=== PATIENT | male | born 1955 | race Caucasian/White ===

== ENCOUNTER 2016-11-30 09:27 | Day surgery (SDC) | payer OTHER ==
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
[2016-11-30] VITALS (9 sets, daily range): BP systolic 124–147; BP diastolic 79–89; PULSE 88–106; RESP 15–25; O2SAT 93–100
[~2016-11-30] VITALS: Ht 182.9 cm; Wt 90.2 kg
--- NOTE | 2016-11-30 08:50 | PCM.HPANE ---
Patient Data Surgeon Admitting Provider: Attending Provider:Royal Acosta MD Primary Care Physician:Jb Truong DO Other Provider:Dana Philip Anesthesia Reason for Visit Lumbar Radiculopathy Ht/WT & BMI Height (Feet): 6 Height (Inches): 0 Weight (Kilograms): 91.35 Body Mass Index 27.00 Allergies Coded Allergies: No Known Drug Allergies (Verified Allergy, Unknown, 07/15/16) Past Anesthesia History Anesthesia History: Denies:: Abnormal Airway, Anesthesia Reactions, Fam Anesthesia Reaction Diabetes History Hx Diabetes?: No MRSA MRSA: No Medications Hypertension Medication: No Home Meds Incl Beta Luanne: No Reported Medications Omeprazole 40 Mg Capsule.dr40 Mg PO DAILY Ref 0 07/15/16 Cyclobenzaprine 10 Mg [id number] Mg PO TID PRN Spasm 07/15/16 Amitriptyline 50 Mg Tab25 Mg PO HS Ref 0 07/15/16 Alprazolam 0.5 Mg Tablet0.5 Mg PO TID PRN For Anxiety Ref 0 07/15/16 History History of ENT Problems?: Yes HEENT History: Positive for:: Sinus Problem (nasal passages plug up when lying on stomach) Denies:: Abnormal Airway Dysphagia Hearing Problem TMJ Hx of Heart Problems?: No Cardiovascular History: Denies:: AICD Abdominal Aortic Aneurism Atrial Fibrillation Chest Pain Congestive Heart Failure Coronary Artery Disease Edema Heart Murmur Hypertension Irregular Heartbeat Pacemaker Rheumatic Fever Thrombophlebitis Hx of Respiratory Problem?: No Respiratory History: Denies:: Asthma COPD Emphysema Oxygen Administration Pneumonia Tuberculosis Use of C-PAP Machine Use of Inhalers / NEBS Hx Neurologic Problems?: Yes Neurological History: Positive for:: Headaches (failed botox treatment, amitriptyline daily controls h/a) Denies:: Alzheimer's Disease CVA Dizziness Multiple Sclerosis Parkinson's Disease Seizures Hx of GI Problems?: Yes Gastrointestinal History: Positive for:: Gastroesphageal Reflux Heartburn Denies:: Cirrhosis Gall Bladder Disease Gastrointestinal Bleeding Hepatitis Hiatal Hernia Liver Disease Rectal Bleeding Hx of Problems?: No Genitourinary History: Denies:: Kidney Stones Urinary Tract Infection Male Hx: Denies:: Prostate Problems Scrotal Mass Testicular Surgery Skin History: Denies:: History Skin Disorders? 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 Denies:: Blood Transfusions Hx Diabetes: No Hx Alcohol Use: No (not for 30 years )Hx Substance Use: No Smoking Status: Former Smoker Stop/Bang S-Snoring: Do You Snore Loudly: No T-Tired: feel tired, fatigued: No O-Obsered: Observed not breath: No P-Blood Pressure: treated: No B- Body Mass Index > 35 kg/m2: No A- Age over 50: Yes N- Neck Large Circumference: No G- Gender Male: Yes CARLOS Total Score: 2 Risk Assessment Category Category 1A: Patient has history of documented sleep apnea, and HAS NOT received any narcotic, sedative or anesthesia administration during this stay. Category 1B: Patient has history of documented sleep apnea, and HAS received any narcotic , sedative or anesthesia administration during this stay Category 2: Patient has SUSPECTED Obstructive Sleep Apnea, and HAS received any narcotic , sedative or anesthesia administration during this stay. Category 3: Patient has SUSPECTED Obstructive Sleep Apnea and HAS NOT received narcotic, sedative or anesthesia administration during this stay. Category 4: Outpatient in Procedural Areas with known sleep apnea or who screen positive for High Risk via the STOP/BANG questionnaire. Exam Exam General Appearance: Alert, Oriented X3, Cooperative, No Acute Distress HEENT/AIRWAY: MP 1 Lungs: Normal Air Movement Heart: Regular Rate/Rhythm Plan Impression Patient chart reviewed, patient interviewed and anesthestic plan with risks, benefits, and alternatives discussed, and informed consent obtained. ASA Physical Status: ASA2 Mod Systemic Disease Anesthetic Plan: GA Bene/Risks/Altern/Consents: Yes HP Complete Prior to Induction: Yes Maru Sun DO Nov 30, 2016 08:50
[~2016-11-30 09:27] MED LIST: ALPR0.5T8 PO; AMT50T PO; Bacitracin 50,000 unit Inj IRRIGATION SCH; Bupivacaine Liposome 1.3% 20 mL Inj INFILTRATE ONE; CYCL10TA9 PO; CeFAZolin Inj 2 GM in IV Premix 1 EACH IV ONE; OMEP40CA36 PO; Thrombin Powder 5,000 Unit TOPICAL SCH
[2016-11-30] MEDS ORDERED: Propofol 10,000 mCg/mL 20 mL Inj ONE (09:28)
[2016-11-30] MEDS ORDERED: Ondansetron 2 mg/mL 2 mL Inj ONE (09:28)
[2016-11-30] MEDS ORDERED: Dexamethasone 4 mg/mL Inj ONE (09:28)
[2016-11-30] MEDS ORDERED: Rocuronium 10 mg/mL 5 mL Inj ONE (09:28)
[2016-11-30] MEDS ORDERED: fentaNYL-PF 50 mCg/mL 2 mL Inj ONE (09:28)
[2016-11-30] MEDS ORDERED: Lidocaine PF 1% 30 mL Inj ONE (09:28)
[2016-11-30] MEDS: Lactated Ringer's 1,000 ML IV SCH ×2 (09:55→12:08)
[2016-11-30] MEDS ORDERED: Bupivacaine Liposome 1.3% 20 mL Inj ONE (11:53)
[2016-11-30] MEDS ORDERED: Bacitracin 50,000 unit Inj XX ONE (12:50)
[2016-11-30] MEDS ORDERED: Thrombin Powder 5,000 Unit TOPICAL ONE (12:51)
[2016-11-30] MEDS ORDERED: Bupivacaine-MPF 0.5% 30 mL Inj INJ ONE (12:51)
[2016-11-30] MEDS ORDERED: Gelatin Sponge 12-7 MM TOPICAL ONE (12:51)
[2016-11-30] MEDS ORDERED: Bupivacaine Liposome 1.3% 20 mL Inj INFILTRATE ONE (12:51)
[2016-11-30] MEDS ORDERED: Lactated Ringer's 500 ML IV PRN (13:03)
[2016-11-30] MEDS ORDERED: Lactated Ringer's 1,000 ML IV SCH ×2 (13:03→14:45)
[2016-11-30] MEDS ORDERED: EPHEDrine Sulfate 50 mg/mL Inj IVPUSH PRN (13:05)
[2016-11-30] MEDS ORDERED: Ondansetron 2 mg/mL 2 mL Inj IVPUSH PRN ×2 (13:05→14:45)
[2016-11-30] MEDS ORDERED: Phenylephrine 10,000 mCg/mL Inj IVPUSH PRN (13:05)
[2016-11-30] MEDS ORDERED: MetoCLOpramide 5 mg/mL 2 mL Inj IVPUSH PRN ×2 (13:05→14:45)
--- NOTE | 2016-11-30 13:08 | DRSVH ---
PROCEDURE: X-RAY LUMBAR SPINE, 2 OR 3 VIEW INDICATIONS: LEFT L4 HEMILAMINECTOMY TECHNIQUE: One views of the lumbar spine were acquired. COMPARISON: None. FINDINGS: Bones: Intraoperative L5-S1 lateral image shows a posterior metallic marker overlying the L4-5 disc l evel. IMPRESSION: Intraoperative disc marker at L4-5. Report called to surgery at 1306 hrs. on 11/30/2016. I nterspace was appropriate marked on the image Dictated by: Alec Young M.D. on 11/30/2016 at 13:05 Approved by: Alec Young M.D. on 11/30/2016 at 13:07
--- NOTE | 2016-11-30 14:44 | PCM.DISURG ---
Surgical Discharge Instruction Date of Service Nov 30, 2016 Dates of Hospitalization Date of Hospital Admission Outpatient with a bed status discharging from day surgery Providers Admitting Physician: Primary Care Physician: Jb Truong DO Attending Physician: Royal Acosta MD Discharge Diagnosis Discharge Diagnosis Status post left L4 hemilaminectomy, left L4 foraminotomy with minimally invasive surgical approach Post Operative diagnosis Status post left L4 hemilaminectomy, left L4 foraminotomy with minimally invasive surgical approach Additional Instructions Discharge Instructions Minimally Invasive Lumbar Spinal Decompression Surgery Instructions What is my recovery like? Patient is usually go home the same day of surgery. A lumbar brace is worn for comfort only. What are my restrictions? You should not lift anything heavier than five pounds. You should not perform any excessive bending from the waist or twisting movements. Can I Shower? You may shower when you go home. You must remove the outside dressing on the 7th day after surgery, or change as needed if soiled or saturated (replacing new sterile gauze & water proof dressing) otherwise leave alone. The remaining small pieces of tape (steri-strips) directly on top of the incision may get wet. The steri-strips will fall off on their own. Can I drive? No, you should not drive until specifically given permission from your Doctor in a follow up appointment. Most Patient's can drive in 2-3 weeks if they are not taking narcotic pain medications or muscle relaxers. You may ride in a car, but should avoid trips longer than two hours in duration. When can I return work / sports? Your Doctor will discuss your return to work with you on your first postoperative follow-up appointment. Most patients may return to work within 2 weeks for sedentary jobs. More physically demanding jobs may require 3-6 months of healing before such work can be considered. When should I call the doctor? You should call your Doctor or go to the Emergency Department if you develop chest pain, shortness of breath, a temperature greater than 101.5 F, severe uncontrolled pain or weakness, loss of bowel or bladder function, choking, lots or drainage, pus discharge or constipation. Instructions Regarding Comfort & Pain Medication Use: During the recovery period , even with the use of pain medication, you may experience pain at the site of surgery. You may also have the same type of pain you had before surgery. Please use your pain scale as a guide for taking your pain medication. When your pain is greater than 4 out of 10, or when your pain reaches your personal tolerable level of pain, take your pain medication as prescribed. Use your pain medication on an 'as needed' basis. This means if your pain level is within your tolerable level of pain you DO NOT need to take the medication. As you get better, you will notice you can increase the time interval between doses and decrease the number of tablets you are taking, gradually taking less and less pain medication. Taking pain medication when it is not necessary (for example when your pain is tolerable or acceptable) can result in dangerous side effects and over- sedation. Signs and symptoms of over-sedation include: drowsiness, excessive sleeping, slow or difficult breathing, slurred speech, impaired thinking, confusion, impaired motor coordination. If you have any of these symptoms stop taking the medication and immediately contact your doctor. IF SYMPTOMS ARE LIFE THREATENING CALL 911. To decrease pain and swelling, frequently apply an ice pack for 20 min intervals with at least one hour off. When to take Acetaminophen for pain? If you don't have liver problems, allergies and/or Tylenol is not in your current pain medication. Take Extra Strength Tylenol 500mg 2 tabs by mouth every 6 hours as needed for pain. DO NOT EXCEED 8 TABS PER DAY. Follow Up Plan Follow Up Plan Follow-up with physician acquisitions assistant in outpatient neurosurgical clinic in 1 week for wound check. Follow-up Provider (F9): Min Roldan PA-C Additional Information Attending Statement All documentation reviewed & orders authorized by Leandro Jameson Scott PA-C Nov 30, 2016 14:44
[2016-11-30] MEDS ORDERED: HYDROmorphone 1 mg/mL Inj IVPUSH PRN (14:45)
[2016-11-30] MEDS ORDERED: Polyethylene Glycol (PEG) 17 Gm Powder PO PRN (14:45)
[2016-11-30] MEDS ORDERED: Sodium Biphos-Phos 133 mL Enema RECTAL PRN (14:45)
[2016-11-30] MEDS ORDERED: Senna-Docusate 8.6-50 mg Tablet PO PRN (14:45)
[2016-11-30] MEDS ORDERED: Magnesium Hydroxide 10 mL Oral Concentration PO PRN (14:45)
--- NOTE | 2016-11-30 14:52 | PCM.ANEP1 ---
Post Anesthesia Phase 1 PACU Phase 1 Assessment Date of Service: Nov 15, 2016 Vital Signs Vital Signs Date Time Temp Pulse Resp B/P Pulse Ox O2 Delivery O2 Flow Rate FiO2 11/30/16 14:50 102 17 146/89 100 Simple Mask 10 11/30/16 14:45 106 25 134/89 100 Simple Mask 10 11/30/16 14:43 36.3 100 19 130/79 100 Simple Mask 10 11/30/16 10:03 36.1 88 16 124/79 94 Room Air Anesthetic Administered: GA Level of Alertness: Awake, talking GOLDSTEIN's with Equal Strength: Yes Pain: No Nausea or Vomiting: No Oxygen Delivery: Simple Mask Lungs: Normal Air Movement Maru Sun DO Nov 30, 2016 14:52
--- NOTE | 2016-11-30 14:53 | PCM.ANEP2 ---
Post Anesthesia Evaluation ASA/CMS Post Anesthesia VS in Patient's Normal Range?: Yes Resp Stable; Airway Patent?: Yes CV Function & Hydration Stable: Yes Mental Status Recovered?: Yes Pain control Satisfactory?: Yes N/V Control Satisfactory?: Yes Maru Sun DO Nov 30, 2016 14:52
[2016-11-30] MEDS: fentaNYL-PF 50 mCg/mL 2 mL Inj IVPUSH PRN ×2 (15:07→15:26)
[2016-11-30] MEDS: HYDROmorphone 1 mg/mL Inj IVPUSH PRN ×2 (15:08→15:27)
[2016-11-30] MEDS ORDERED: Senna-Docusate 8.6-50 mg Tablet PO SCH (20:30)
--- NOTE | 2016-12-01 00:39 | OP ---
[address] [address] OPERATIVE REPORT PATIENT: STACY RAZA : 1955 MR#: [id number] ADMIT: 11/30/2016 JOB ID: [id number] DATE OF SURGERY: 11/30/2016 PREOPERATIVE DIAGNOSIS(ES): Lumbar spondylosis left L4 radiculopathy. POSTOPERATIVE DIAGNOSIS(ES): PROCEDURE: Left L4 hemilaminectomy and left L4 foraminotomy. SURGEON: First crozer operator: Royal Acosta MD. BEHAVIORAL HEALTH CARE MANAGER: Min Roldan PA-C. ANESTHESIA: General with Dr. Maru Sun. ESTIMATED BLOOD LOSS: 50 cc. DRAINS: None. COMPLICATIONS: None. INDICATIONS: This patient presented with a left L4 radiculopathy. He was found to have spondylosis with neural foraminal narrowing on the left side at L4-5 compressing the left L4 root. DESCRIPTION OF PROCEDURE: This patient was taken to the operating room on November 30, 2016, placed under general anesthesia, placed prone on a Francis frame, prepped and draped sterile. A spinal needle was placed at the L4 spinous process and its position confirmed with an intraoperative lateral L-spine fluoroscopic image. The skin was then infiltrated along the spinous process of L4, just to the left side, and a 2 cm incision was placed at this location just to the left of the L4 spinous process. The incision extended 2 cm and was carried down through the skin and subcutaneous tissues. Hemostasis was achieved with the monopolar. Progressive dilators were then placed on the left side docking on the left L4 lamina. An operating tube with a diameter of 22 mm was then placed over the dilating tubes over the lamina of L4 on the left side. The operating tube was then attached to the side rail of the operating table with a connecting arm. An AP and lateral fluoroscopic image confirmed the location of this operating tube over the left L4 lamina. The microscope was then brought into position sighting through the tube and the soft tissue overlying the lamina of L4 was cauterized. The most caudal aspect of the L4 lamina was thinned with the high-speed bur and the Kerrison punch was used to initiate the hemilaminectomy. The hemilaminectomy was completed with the Kerrison punch. It was possible to work laterally to unroof the L4 root adjacent to the left L4 pedicle. It was possible to decompress the L4 root above and below the pedicle and to follow the L4 root into the foramen unroofing the root and further decompressing the foramen with the right-angle curette. This side decompression of the L4 root preserved the left L4-5 facet. Following this decompression, the wound was irrigated with antibiotic solution. Hemostasis was achieved with the bipolar electrocautery. Gelfoam was left in the left L4 hemilaminectomy defect. The dorsolumbar fascia was approximated with 0 Vicryl and 2-0 Vicryl was used to close the cutaneous tissues and the dermal layer, 4-0 Vicryl was used to close the skin in a subcuticular stitch. Steri-Strips were applied to the skin, which was dressed with Telfa, gauze, and tape. It should be noted that prior to the skin closure that the patient received injections of Exparel both deep into the paraspinous musculature and more superficial into the subcutaneous tissues and dermal layer.
== END 2016-11-30 23:59 | disposition home or self-care (01) ==
LOC: SAS 09:27
PROVIDERS: ATTEND Neurological Surgery
DX: M54.16 Radiculopathy, lumbar region (principal); R51 Headache; K21.9 Gastro-esophageal reflux disease without esophagitis; R12 Heartburn; F41.9 Anxiety disorder, unspecified; Z79.899 Other long term (current) drug therapy; Z87.891 Personal history of nicotine dependence
CPT/HCPCS: 63047; 72100; 76000; J0690; J1100; J1170; J2405; J3010; J7120